=== PATIENT | female | born 1995 | race Caucasian/White ===

== ENCOUNTER 2018-04-05 00:01 | Emergency (ER) | payer OTHER ==
[~2018-04-05] VITALS: Ht 175.3 cm; Wt 70.8 kg
[2018-04-05 00:33] VITALS: Ht 175.3 cm; Wt 70.8 kg
[2018-04-05 03:38] VITALS: BP 118/81
== END 2018-04-05 03:38 | disposition home or self-care (01) ==
LOC: ED 00:01
DX: S63.501A Unspecified sprain of right wrist, initial encounter (principal); X58.XXXA Exposure to other specified factors, initial encounter; Y93.89 Activity, other specified; Y92.89 Other specified places as the place of occurrence of the external cause; Y99.8 Other external cause status

== ENCOUNTER 2018-10-01 21:20 | Emergency (ER) | payer SELFPAY ==
[~2018-10-01] VITALS: Ht 175.3 cm; Wt 66.7 kg
[2018-10-01 21:23] VITALS: Ht 175.3 cm; Wt 66.7 kg
[2018-10-01 22:15] VITALS: BP 120/84
[2018-10-01 22:35] LABS: UA SPECIFIC GRAVITY >=1.030 (1.005-1.035); microscopic required? YES; urine erythrocyte NEGATIVE (NEGATIVE)
== END 2018-10-01 22:15 | disposition home or self-care (01) ==
LOC: ED 21:20
PROVIDERS: Specialist
DX: N12 Tubulo-interstitial nephritis, not specified as acute or chronic (principal)
CPT/HCPCS: J0696; J1885

== ENCOUNTER 2018-12-12 23:08 | Emergency (ER) | payer SELFPAY ==
[2018-12-12 23:13] VITALS: Ht 175.3 cm
[2018-12-13 00:12] VITALS: BP 128/72
== END 2018-12-13 00:12 | disposition home or self-care (01) ==
LOC: ED 23:08
DX: S09.8XXA Other specified injuries of head, initial encounter (principal); W10.9XXA Fall (on) (from) unspecified stairs and steps, initial encounter; Y93.89 Activity, other specified; Y92.89 Other specified places as the place of occurrence of the external cause; Y99.8 Other external cause status

== ENCOUNTER 2019-02-10 17:19 | Emergency (ER) | payer SELFPAY ==
[~2019-02-10] VITALS: Ht 175.3 cm; Wt 66.2 kg
[2019-02-10 18:19] VITALS: BP 119/85; Ht 175.3 cm; Wt 66.2 kg
== END 2019-02-10 20:43 | disposition left against medical advice (07) ==
LOC: ED 17:19
DX: Z53.21 Procedure and treatment not carried out due to patient leaving prior to being seen by health care provider (principal)

== ENCOUNTER 2019-06-10 03:15 | Emergency (ER) | payer SELFPAY ==
[~2019-06-10] VITALS: Ht 175.3 cm; Wt 70.3 kg
[2019-06-10 03:18] VITALS: Ht 175.3 cm; Wt 70.3 kg
[2019-06-10 04:20] LABS: CALCIUM 9.3 mg/dL (8.5-10.1); CARBON DIOXIDE 24.5 mmol/L (21-32); CHLORIDE SERUM 102 mmol/L (98-107); CREATININE SERUM 0.8 mg/dL (0.6-1.0); GFR1 > 60 mL/min; GLUCOSE SERUM 92 mg/dL (74-106); POTASSIUM SERUM 3.8 mmol/L (3.5-5.1); SODIUM SERUM 139 mmol/L (136-145)
[2019-06-10 04:24] LABS: ALBUMIN 4.2 g/dL (3.4-5.0); ALKALINE PHOSPHATASE 51 U/L (46-116); ALT/SGPT 16 U/L (14-59); AST/SGOT 7 U/L (15-37); BILIRUBIN TOTAL 0.56 mg/dL (0.20-1.00); LIPASE 74 IU/L (73-393); TOTAL PROTEIN, SERUM 8.2 g/dL (6.4-8.2)
[2019-06-10 04:25] LABS: BASOPHIL % 0.3 % (0-2); PLATELET COUNT 296 x10^3mcL (130-400); RED CELL DISTRIBUTION WIDTH 12.4 % (11.5-14.5)
[2019-06-10 05:28] LABS: AMPHETAMINE QUAL UR NONE DETECTED (See below)
[2019-06-10 06:04] VITALS: BP 108/67
== END 2019-06-10 06:08 | disposition home or self-care (01) ==
LOC: ED 03:15
PROVIDERS: Emergency Medicine
DX: R10.13 Epigastric pain (principal); R11.0 Nausea; R10.10 Upper abdominal pain, unspecified
CPT/HCPCS: 36415; J1885; Q0162